=== PATIENT | male | born 1995 | race Two or more races ===

== ENCOUNTER 2016-04-26 19:57 | Inpatient (IN) | payer OTHER ==
--- NOTE | 2016-04-26 20:13 | EDPHY ---
H & P Stated Complaint: M1 for SI; took 7 Xanax today and called his sister with SI Source: Patient, Police Exam Limitations: No limitations - Personal History Current Tetanus/Diphtheria Vaccine: Yes Current Tetanus Diphtheria and Acellular Pertussis (TDAP): Yes Tetanus Vaccine Date: 2015 - Medical/Surgical History Hx Asthma: No Hx Chronic Respiratory Disease: No Hx Diabetes: No Hx Cardiac Disease: No Hx Renal Disease: No Hx Cirrhosis: No Hx Alcoholism: No Hx HIV/AIDS: No Hx Splenectomy or Spleen Trauma: No Other PMH: PSHx: denies. PMHx: denies - Social History Smoking Status: Former smoker HPI/ROS: CHIEF COMPLAINT: Suicidality, M1 HISTORY OF PRESENT ILLNESS: The patient is a 20 y/o male arriving on an M1 hold after he expressed suicidal thoughts and reportedly took 7 Xanax in an attempt to overdose. Per M1 paperwork he intentionally overdosed on Xanax and later attempted to jump out of a moving vehicle to harm himself. He says, "me and my girlfriend broke up and I lost my wallet;" "I've had a rough day." He says his girlfriend contacted 911. He reports to me that he took only 2 Xanax pills to calm himself down and denies wanting to hurt himself or others. The Xanax is not prescribed to him. He denies recent illness or trauma. He denies any medical history. REVIEW OF SYSTEMS: A ten point review of systems was performed and is negative with the exception of the items mentioned in the HPI. (Blanka Arevalo) - Medical/Surgical History PMH: Denies (Blanka Arevalo) - Social History Additional Social History: Working currently. Occasional cigarette use. Social alcohol use. No street drugs. [employer]. (Blanka Arevalo) - Physical Exam Exam: General Appearance: Alert. Vital signs reviewed. HR 110, BP 153/84 at triage. Eyes: Pupils equal and round, no conjunctival injection, no discharge. Anicteric. ENT, Mouth: Mucous membranes are moist, no oropharyngeal erythema or edema. Neck: No lymphadenopathy, supple. Respiratory: Lungs are clear to auscultation; no wheezes, rales, or rhonchi. Cardiovascular: Regular rate and rhythm; no murmur, rub, or gallop. Gastrointestinal: Abdomen is soft and nontender, no masses or organomegaly, bowel sounds normal. Skin: Warm and dry, no rashes on exposed skin, normal color. Back: Nontender to palpation over the thoracolumbar spine. No CVAT. Extremities: No lower extremity edema, no calf tenderness or swelling. Neurological: Alert and oriented. Moving all four extremities easily and equally. Psychiatric: Slight flat affect. No agitation. (Blanka Arevalo) Constitutional: Initial Vital Signs Temperature (C) 36.5 C 04/26/16 20:01 Heart Rate 110 H 04/26/16 20:01 Respiratory Rate 12 04/26/16 20:01 Blood Pressure 153/84 H 04/26/16 20:01 O2 Sat (%) 98 04/26/16 20:01 O2 Delivery Mode Room Air Allergies/Adverse Reactions: No Known Allergies Allergy (Unverified 02/22/16 23:03) Home Medications: Medication Instructions Recorded ALPRAZolam [Xanax 1 MG (*)] 2 - 4 mg PO PRN PRN 04/27/16 Medical Decision Making ED Course/Re-evaluation: 5:00 a.m.- I received sign-out on this patient from Dr. Arevalo at approximately 11:00 p.m.. The patient received a dose of Ativan overnight by me. He was evaluated by the mental health worker who agrees that he needs hospitalization for heidi. He will go to [address] [place] [address] later this morning. (Maritza Guzman) Care assumed at 7:00 a.m. with plan for inpatient hospitalization for suicidality. The patient will be transferred to [facility] for inpatient psychiatric hospital bed not available at this facility, in stable condition. Accepting physician is Dr. Dr. Jennifer Ledesma. EMTALA filled out at 11:39 a.m.. (Ken Hall) Standard psychiatric labs and UA ordered. Plan to medically clear then have mental health evaluated. Urine drug screen positive for marijuana, amphetamine, and benzodiazepine. Patient has been medically cleared and will undergo mental health evaluation. He has been cooperative while under my care. His care will be transferred to Dr. Guzman at 11 PM on 04/26/16. (Blanka Arevalo) Differential Diagnosis: I considered a differential diagnosis that includes but is not limited to depression, suicidality, homicidality, psychosis, heidi, and substance abuse. ( Blanka Arevalo) - Data Points Laboratory Results: Laboratory Results 04/26/16 20:30 04/26/16 20:30 Medications Given: Discontinued Medications Lorazepam (Ativan) 1 mg PO EDNOW ONE Stop: 04/27/16 01:24 Last Admin: 04/27/16 01:24 Dose: 1 mg Lorazepam (Ativan) 1 mg PO EDNOW ONE Stop: 04/27/16 11:41 Last Admin: 04/27/16 11:51 Dose: 1 mg Departure - Departure Disposition: [facility] IP Clinical Impression: Suicidal ideation Condition: Good Report Scribed for: Blanka Arevalo Report Scribed by: Krystina Ybarra Date of Report: 04/26/16 Time of Report: 20:28 Physician Review and Approval Statement: 04/26/16 20:13 Portions of this note were transcribed by the medical artist. I, Dr. Blanka Arevalo, personally performed the history, physical exam, and medical decision- making; and confirmed the accuracy of the information in the transcribed note. ( Blanka Arevalo)
[2016-04-26 20:45] LABS: % IMMATURE GRANULYOCYTES 0.4 % (0.0-1.1); ABSOLUTE IMMATURE GRANULOCYTES 0.04 10^3/uL (0.00-0.10); ADD DIFF? NO; ADD MORPH? NO; ADD SCAN? NO; ATYPICAL LYMPHOCYTE FLAG 30 (0-99); FRAGMENT RBC FLAG 0 (0-99); HEMATOCRIT 46.2 % (40.0-51.0); HEMOGLOBIN 16.2 g/dL (13.7-17.5); LEFT SHIFT FLG 0 (0-99); LIPEMIA HEMOLYSIS FLAG 90 (0-99); MEAN CELL HEMOGLOBIN 30.2 pg (27.9-34.1); MEAN CELL HEMOGLOBIN CONCENTR. 35.1 g/dL (32.4-36.7); MEAN CELL VOLUME 86.2 fL (81.5-99.8); MEAN PLATELET VOLUME 9.8 fL (8.7-11.7); PLATELET CLUMPS FLAG 10 (0-99); PLATELET COUNT 263 10^3/uL (150-400); RED BLOOD CELL COUNT 5.36 10^6/uL (4.40-6.38); RED CELL DISTRIBUTION WIDTH 12.3 % (11.5-15.2)
[2016-04-26 20:54] LABS: ANION GAP 11 mEq/L (8-16); CALCIUM 9.6 mg/dL (8.5-10.4); CARBON DIOXIDE 28 mEq/l (22-31); CHLORIDE 105 mEq/L (97-110); CREATININE 0.9 mg/dL (0.7-1.3); ETHANOL SERUM < 10 mg/dL (0-10); GLOMERULAR FILTRATION RATE > 60; GLUCOSE 92 mg/dL (70-100); POTASSIUM 4.1 mEq/L (3.5-5.2); SALICYLATE < 1.0 mg/dL (2.0-20.0); SODIUM 144 mEq/L (134-144)
[2016-04-27] MEDS ORDERED: LORazepam 1 MG TAB ONE (01:18)
[2016-04-27] MEDS ORDERED: LORazepam 1 MG TAB PO ONE ×2 (01:23→11:40)
[2016-04-27] MEDS ORDERED: MAG HYDROX/AL HYDROX/SIMETH 30 ML UDCUP PO PRN (16:01)
[2016-04-27] MEDS ORDERED: MAGNESIUM HYDROXIDE 30 ML UDCUP PO PRN (16:33)
[2016-04-27] MEDS ORDERED: OLANZapine DISINTEGR 10 MG TAB PO PRN (16:33)
[2016-04-27] MEDS ORDERED: LORazepam 0.5 MG TAB PO PRN (16:33)
[2016-04-27] MEDS ORDERED: NICOTINE POLACRILEX 2 MG GUM B PRN (16:33)
[2016-04-27] MEDS ORDERED: ACETAMINOPHEN 325 MG TAB PO PRN (16:33)
--- NOTE | 2016-04-28 10:20 | GCON ---
[f rep st] CONSULTATION INTERNAL MEDICINE MEDICAL CLEARANCE CONSULTATION ON THE PSYCHIATRIC UNIT. DATE OF CONSULTATION: 04/28/2016 REFERRING PHYSICIAN: Jennifer Ledesma MD HISTORY OF PRESENT ILLNESS: This is a 20-year-old male, whom I am seeing on the behavior health unit on an M1 hold. It is reported from the ER report that the patient expressed suicidal thoughts and w as said to have taken 7 Xanax in an attempted overdose. The patient this morning reports to me that he told 2, at most 3, Xanax because he was upset because he was breaking up with his girlfriend. He was with his girlfriend at that time and he became quite sleepy, and the girlfriend wanted to take hi m for medical evaluation. She stopped at a red light and he said he would rather just take a walk an d clear his head. As he was stepping out of the car, she stepped on the gas, and a market analyst behind him saw the incident and said that he was attempting to jump out of a moving car. He was thus taken to the emergency department, where he was evaluated with the aforementioned information and then plac ed on an M1 hold for a suicidal attempt. This morning the patient denies completely that he ever was attempting suicide at all and says he has never tried to do that before. He said it was simply a misunderstanding and admits that he was upse t regarding his girlfriend, yet denies suicidal ideation or intention. PAST MEDICAL HISTORY: Denies asthma, allergies, high blood pressure, diabetes, or renal problems. Italo ocasio takes no medication for any medical illness. PAST SURGICAL HISTORY: None. REVIEW OF SYSTEMS: A 10-point review of systems reveals only that he has a right knee which gives hi m some difficulty. He has been evaluated and he reports he has a meniscal injury. He says while boris bharat some sports it will give him some difficulties, but otherwise it is currently not a problem. He denies recent cold, cough, sore throat, and exposure to anyone acutely ill. He has no complaints of chest pain, shortness of breath, abdominal pain. 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 He is in his semester and will graduate this coming August. Tobacco: None. Alcohol: On weekends and sometimes in abuse but not chronically. He has never blacked out or had a seizure. He disclaims addiction to alcohol. Drugs: Except for occasional marijuana, he denies other use of drugs and there is no histo ry of IV drug abuse. FAMILY HISTORY: His father lives in [facility] [place] [facility], and he will be going to [place] [employer] [place] following graduation for [employer] as a electromechanical technician. ALLERGIES: None. PHYSICAL EXAM: GENERAL: This is a pleasant, alert, gentleman who is cooperative and oriented x3, an d calm. VITAL SIGNS: He is normotensive, and his vital signs are normal. HEENT: Shows no signs of trauma. TMs are faye bilaterally. Tongue, buccal mucosa are normal without signs of trauma. Teeth are in good repair. NECK: Supple without meningismus. Thyroid is nonpalpable. There is no adenop athy in the cervical region. LUNGS: Clear to P and A without wheezing or rales. HEART: Singular S 1 and S2. No murmur, gallop, or rub. ABDOMEN: Nontender, benign, without masses, tenderness, or or ganomegaly. EXTREMITIES: No edema, cyanosis, or clubbing. NEUROLOGIC: Oriented x3, calm, pleasant , and cooperative male. Cranial nerves 2 through 12 are intact to specific testing. LABORATORY DATA: CBC is normal. Chemistry panel normal. Toxicology says that he is positive for be nzodiazepine and cocaine and marijuana. ASSESSMENT: 1. Acute suicidal ideation by initial history. I suspect that his behavior was significantly altere d due to his active drug abuse at the time of admission, of benzodiazepine, cocaine, and marijuana. This morning he expresses no concerns or suicidal ideation. Further psychiatric evaluation will proc eed on the behavioral health unit. 2. Polydrug abuse on admission, as evidenced by his positive tox screen for benzodiazepines, cocaine , and marijuana. It is reported that he took 7 Xanax but the patient reports he took at most 3. He said he was not trying to kill himself but only that he was upset that he was breaking up with his gi rlfriend. 3. The patient is medically cleared for psychiatric care on the behavior health unit. He has no act mya medical problems at this time. TIME: This consultation required 35 minutes. I will sign off on this case. If you need further assistance, please call. /[id number]/MODL
[2016-04-28] MEDS ORDERED: ALPRAZolam 0.25 MG TAB PO PRN (10:28)
[2016-04-28] MEDS: ALPRAZolam 0.5 MG TAB PO PRN ×2 (11:15→21:10)
--- NOTE | 2016-04-28 14:41 | BAPA ---
[f rep st] ADMISSION PSYCHIATRIC ASSESSMENT DATE OF SERVICE: 04/28/2016 CHIEF COMPLAINT: "I had a fight with my girlfriend and I tried to jump out of a car." HISTORY OF PRESENT ILLNESS: The patient is a 20-year-old male, who denies any previous formal psychiatric history, who arrived to the ED on an M1 Hold after he reportedly expressed suicidal thoughts and took 7 Xanax pills in an attempt to overdose. As per M1 paperwork, he intentionally overdose on Xanax and later attempted to jump out of a moving vehicle to harm himself. The patient denies both, states he did not take the Xanax in a suicide attempt and did not try to jump out of a moving vehicle, but that the vehicle had been stopped and his girlfriend pressed on the gas. He states "me and my girlfriend broke up, and I lost my wallet. I've had a rough day to the ED doctor." He reports to the ER doctor he only took 2 Xanax pills to calm himself down, and states he self medicates with Xanax given to him by friends. Urine tox was positive for benzodiazepines, cocaine, and marijuana. He states he used cocaine the night before. He minimizes his drug use and all events that happened prior to admission. He told the [facility] management associate, "I'm here because I had a fight with my girlfriend, took some Xanax, and she thought I was going to overdose and said I needed to go to the hospital, but I didn't want to so I kept trying to get out of the car and she would put her foot on the gas." The patient states he normally takes a quarter of a Xanax bar (2mg) when he has a fight with his girlfriend or family or is stressed out. These are not prescribed. He reportedly took an unknown amount of Xanax, made a suicidal statement, which he denies, and a welfare check turned into a 90 minutes search via phone pings. The patient reports he had a fight with his girlfriend. However, denies making suicidal statements. The [place] Police overheard him say to a friend on the phone, he had he taken 7 Xanax, and sister told PD that he had taken 2 Xanax and was expressing depression and suicidal ideation. The M1 hold written by Thomas BROOKS stated, "patient was dispatched to the area on a report of a male who had called his sister, Olivia, and stated to her he had taken a handful of pills in a suicidal due to a recent break up. The patient also told his roommate he had taken 7 pills of Xanax and then called his ex-girlfriend and said he would go to the hospital if she took him. Patient then tried to jump out of a moving vehicle twice". The patient reports when he was 14 he was brought to psych ER after a fight with his father, and was seen by Psych and discharged after an hour. The patient states he is willing to go see a psychiatrist or therapist on discharge, and has [employer] insurance. The patient denies any recent problems with sleep. He states he gets 6-8 hours a night. Appetite is good. Drinks socially. Occasionally on weekends 4-5 shots a night , last drink was last weekend. First used alcohol at age 17. He smokes marijuana, first used at age 16, uses twice a week. Started using cocaine at 17 or 18 years old. He only uses cocaine occasionally. The patient told the [facility] management associate he used cocaine 3 days ago. However, when told his UTOX was positive for cocaine, he told this MD he might have used the night before. The patient's mother states the patient is very manipulative and does not listen to anyone, but cries and argues to exhaustion to get what he wants. The patient states his M1 is up today; however, it is not up till tomorrow and is upset that he could not leave today. The patient reports his father is a millionaire and he is paying for his school and his rent. The patient was perseverating on whether his relationship with his girlfriend was over while in the ED and had wanted to call his dad to get him out of the ED. The patient was obsessing about his dog (he reported him and his girlfriend have a new puppy ) and his desire to arrange visits or taking turns with his girlfriend to walk it, and maintained an ongoing relationship with her because he bought the dog and the dog is a 9-week-old puppy. When seen by this MD, patient states that he did not try to commit suicide, that he is not a cocaine dealer; however, his neighbor stated he was. The patient told this MD that he is a student at . However, the mother reported the patient is not a student at , and has not attended classes since March 2015. 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 He told this MD he was still working there. He had a DUI a year ago. The patient's license is currently suspended. The [facility] technology officer did not feel the patient was a reliable historian as his story shifted and patient may guarded answers, and collateral data was obtained by [place] . The patient called - - while in the ED about his ex GF. People at his apartment complex and people in the park ask if they were looking for "the ariel who sells cocaine", or "Habib who sells cocaine", which is the patient. Also reported in [facility] during the evaluation, patient took a phone call from his friend, Shan, who also drives a [employer] as does the pt and believed the patient had his keys in his pocket. The patient told the management associate the confusion happened because the patient and Shan have the same car and sometimes drives his car, despite the management associate pointing out that the patient was breaking the law by buying Xanax off the street, abusing it, and driving without a license. Patient attempted to argue that it was not a big deal, and focuses on his dog and his GF. The patient did not appear at all tired or fatigued, despite being after 1 a.m. and asked for something to help him sleep. He was clearly high on cocaine. PSYCHIATRIC HISTORY: Patient denies any previous psychiatric hospitalizations but was seen once at age 14 after an argument with his father in a psychiatric ER, and was discharged. He states that he gets Xanax from a friend and it is not prescribed, but he would like to see a psychiatrist to get it prescribed. SUBSTANCE ABUSE HISTORY: As above. MEDICAL HISTORY: The patient has a torn knee meniscus. SOCIAL HISTORY: The patient's father came from [facility] in [place] when he was 24. He worked hard a bread place in [place], and brought his mom over. His father went back to school at age 25 and ecame a computer applications developer. Patient states father is now a millionaire. They are strict Muslims, and do not drink or use drugs. The patient lives in an apartment in [place] with 3 other roommates, and 2 of his roommates are best friends whom he has known since elementary school. He does not get along with his other roommate. He and his girlfriend have been dating for 4-5 months. [place] police were told by the girlfriend that he cheated on her so she broke up with him. The patient states this is his 1st love, but he is not ready to be in a serious relationship. He states he is in college in mechanical engineering at , but mother states that is not true. MENTAL STATUS: Patient is alert and oriented x4. Mood is euthymic. Affect is appropriate. Patient denies auditory or visual hallucinations. Denies suicidal or homicidal ideation. Sleep and appetite are good. Denies paranoid ideation. The patient admits to being depressed over the relationship with his girlfriend breaking up. No signs or symptoms of psychosis or heidi. The patient appears manipulative and states his M1 should be up because he has been in the hospital for 3 days. Thoughts logical and coherent. Speech normal rate and rhythm. Memory intact. Fund of knowledge is within normal limits. IQ within normal limits. Insight and judgment are limited in reference to his substance abuse. He is minimizing what happened and minimizing the fact that he is breaking the law by driving with a suspended license, buying Xanax from other people, they are not his, and using an illegal substances, i.e., cocaine. IMPRESSION: 1. Substance-induced mood disorder. Cocaine and benzodiazepine use disorder, severe. Cannabis use disorder, severe. Adjustment disorder with mixed disturbance with disturbance of mood and mixed emotional features. Rule out narcissistic personality disorder. 2. Medical problems: Torn knee meniscus. 3. [place] V: Global Assessment of Functioning on admission was 20 PLAN: Continue p.r.n. medication. The patient is upset that he cannot leave today. However, he seems to think there are no consequences for his actions. The patient does not appear to have a psychiatric problem other than a personality disorder and a substance abuse problem. He will probably be discharged when his M1 is up tomorrow, and will be referred to [place] for a psychiatry appointment. /[id number]/MODL MTDD
[2016-04-29] MEDS: ALPRAZolam 0.5 MG TAB PO PRN (05:14)
[2016-04-29 06:08] VITALS: BP 127/79; PULSE 79; RESP 12; TEMP 98.4; O2SAT 99
--- NOTE | 2016-04-29 12:08 | BDS ---
[ rep st] BEHAVIORAL HEALTH DISCHARGE SUMMARY CHIEF COMPLAINT: "I had a fight with my girlfriend and I tried to jump out of a car." HISTORY OF PRESENT ILLNESS: The patient is a 20-year-old, male of [place] descent who denies any previous formal psychiatric history. He arrived to the ED on an M1 hold after he reportedly expressed suicidal thoughts to his girlfriend reportedly and took 7 Xanax pills. Per M1 paperwork, he intentionally overdosed on Xanax and later attempted to jump out of a moving vehicle to harm himself. The patient denies both of these things. He states he did not take the Xanax in a suicide attempt, did not take 7, and did not try to jump out of a moving vehicle, but that the vehicle had been stopped and his girlfriend pressed on the gas. He states "me and my girlfriend broke up and I lost my wallet. I've had a rough day." He stated that to the ED doctor. Told the ER doctor he only took 2 Xanax pills in order to calm himself down. States he self medicates with Xanax given to him by friends. U tox is positive for benzos, cocaine and marijuana. The patient denied using marijuana. When told his U tox is positive, he states it must have been from the night before. He minimizes his drug use and all the events which happened prior to admission. His neighbors stated that that "Habib.. the ariel who sells cocaine". Patient denies that he deals cocaine, but clearly was intoxicated on cocaine prior to admission. Utox was positive for cannabis, benzos and cocaine. ADMISSION DIAGNOSES: 1. Substance-induced mood disorder. 2. Cocaine and benzodiazepine use disorder, severe. 3. Cannabis use disorder, severe. 4. Adjustment disorder with mixed disturbance of mood and mixed emotional features. 5. Rule out narcissistic personality disorder with antisocial features. MEDICAL PROBLEMS: Torn knee meniscus. [place] V on admission was 20 HOSPITAL COURSE: The patient was put on Xanax p.r.n. 0.25, and he states he usually takes 2-4 mg at time. This was done to prevent benzo withdrawal. The patient denied feeling suicidal throughout his hospitalization. He was friendly with other patients. He did not feel he needed to be here. He minimized all events; however, did not experience any psychotic or manic symptoms and was sleeping and eating well and did not appear depressed. He appears to minimize his substance abuse. He states he is a [employer] student, but his mom states he has not gone to classes since March of 2015. He lives with roommates and recently, he has broken up with his girlfriend. CBC was normal. Chemistry panel was normal. Urine tox was positive for benzos, cocaine and marijuana. He had no physical problems which were treated during the hospitalization. The patient wanted to leave when his M1 which was the day of discharge. MENTAL STATUS ON DISCHARGE: Patient is alert and oriented x4. Mood is euthymic. Affect is appropriate. Thoughts logical and coherent. Speech normal rate and rhythm. No suicidal or homicidal ideation. No auditory or visual hallucinations. Speech, appetite, energy level are normal. IQ, fund of knowledge, concentration and memory are intact. No symptoms of psychosis or heidi. Insight and judgment are fair. The patient lacks insight into his substance abuse problems. DIAGNOSES ON DISCHARGE: 1. Substance-induced mood disorder. 2. Cocaine and benzodiazepine use disorder, severe. 3. Cannabis use disorder, severe. 4. Adjustment disorder with mixed disturbance of mood and mixed emotional features. 5. Rule out narcissistic personality disorder with antisocial features. 6. Global Assessment of Functioning on admission is 60. PLAN: Will order discharge medications, Xanax 0.25 one tab q.6 hours as needed #5. The patient will follow up with a [place] psychiatrist and was given an appt by the critical care nurse practitioner. He was discharged voluntarily and is medically and psychiatrically stable for discharge. /[id number]/MODL MTDD
== END 2016-04-29 14:00 | disposition home or self-care (01) | DRG 880 ==
LOC: BBEH 04-27 12:50
PROVIDERS: ADMIT Psychiatry & Neurology Psychiatry; ATTEND Psychiatry & Neurology Psychiatry
DX: R45.851 Suicidal ideations (principal); F43.25 Adjustment disorder with mixed disturbance of emotions and conduct; F60.81 Narcissistic personality disorder; F14.94 Cocaine use, unspecified with cocaine-induced mood disorder; F15.94 Other stimulant use, unspecified with stimulant-induced mood disorder; F12.90 Cannabis use, unspecified, uncomplicated; M23.300 Other meniscus derangements, unspecified lateral meniscus, right knee; Z87.891 Personal history of nicotine dependence
CPT/HCPCS: 80305; G0480